=== PATIENT | female | born 1975 | race Caucasian/White ===

== ENCOUNTER 2017-01-31 13:38 | Emergency (ER) | payer OTHER ==
[~2017-01-31] VITALS: Ht 167.6 cm; Wt 155.5 kg
[~2017-01-31 13:38] MED LIST: ACCOLATE20 MG PO; ADVAIR 100/501 DISK IH; ADVAIR 250/501 DISK IH; ADVAIR HFA120 INHALA IH; ALEVE220 MG PO; AMOXICILLIN500 MG PO; AQUAPHOR OINTM105 GM TP; ASPIR-LOW81 MG PO; ATROVENT 00.5 MG/2.5 IH; AUGMENTIN875 MG PO; Advair 100/50 Diskus IH; BACTRIM,SEPT1 TABLET PO; CEFTIN500 MG PO; COLACE100 MG PO; COUMADIN; COUMADIN1 MG PO; COUMADIN2 MG PO; COUMADIN5 MG PO; Ceftin PO; Coumadin Protocol PO; DUONEB 2.5-0.5 M3 ML AEROSOL; FEOSOL325 MG PO; FERROUS SULFAT325 MG PO; FLEXERIL10 MG PO; FLUOXETINE HCL20 MG PO; FUROSEMIDE20 MG PO; FUROSEMIDE40 MG PO; GLUCOPHAGE500 MG PO; KEFLEX500 MG PO; LASIX40 MG PO; LISINOPRIL-HCT1 EACH PO; LOPRESSOR25 MG PO; LORTAB 5-325 M1 EACH PO; LOVENOX150 MG/1 M SC; Levaquin PO; Lovenox SC; METOPROLOL; METOPROLOL TART25 MG PO; MONTELUKAST SOD10 MG PO; NOHOMEMEDS; NORCO 5/3251 TABLET PO; PEN-VEE K,VEET500 MG PO; PREDNISONE20 MG PO; PREDNISONE5 MG PO; PRENATA CHEWAB1 EACH PO; PROAIR HFA8.5 GM IH; PROVENTIL,2.5 MG/3 M IH; PROZAC20 MG PO; Protonix PO; SIMVASTATIN40 MG PO; SINGULAIR10 MG; TYLENOL REGULA325 MG PO; TYLENOL WITH C1 EACH PO; ULTRAM50 MG PO; VENTOLIN HFA18 GM IH; WARFARIN SODIUM1 MG PO; WARFARIN SODIUM5 MG PO; ZESTORETIC 10-1 EAC1 PO; Zyvox PO; predniSONE PO
[2017-01-31 14:25] LABS: HEMATOCRIT 57.9 % (36.0-46.0); MCH 27.7 PG (29.0-34.0); MCHC 30.1 G/DL (30.0-36.0); MCV 92.2 FL (83-99); PLATELET COUNT 157 K/uL (156-360); RBC DIS.WIDTH-CV 16.6 % (11.8-14.6); RBC DIS.WIDTH-SD 52.1 % (39-53); RED BLOOD COUNT 6.28 M/uL (3.80-5.20); WHITE BLOOD COUNT 7.5 K/uL (4.1-10.2)
[2017-01-31 14:33] LABS: PROTHROMBIN TIME 11.3 SEC (10.2-12.9)
[2017-01-31 14:35] LABS: CHLORIDE 92 mEq/L (99-109); SODIUM 138 mEq/L (136-147)
[2017-01-31 14:36] LABS: PTT 31.3 SEC (25-37)
[2017-01-31 14:37] LABS: GLUCOSE 242 mg/dL (70-99)
[2017-01-31 14:38] LABS: ANION GAP 11 MEQ/L (2-14)
[2017-01-31 14:41] LABS: GFR ESTIMATE (CALCULATED) > 59 mL/min/
[2017-01-31 14:42] LABS: UREA NITROGEN (BUN) 6 mg/dL (9-23)
[2017-01-31] MEDS ORDERED: KEFLEX500 MG PO (15:24)
[2017-01-31] MEDS ORDERED: MONTELUKAST SOD10 MG PO (15:33)
[2017-01-31] MEDS ORDERED: METFORMIN HCL500 MG PO (15:33)
[2017-01-31] MEDS ORDERED: LISINOPRIL-HCT1 EACH PO (15:33)
[2017-01-31 15:36] VITALS: BP 00/0
== END 2017-01-31 15:37 | disposition home or self-care (01) ==
LOC: EME 13:38
PROVIDERS: Physician Assistant
DX: R60.0 Localized edema (principal); E11.9 Type 2 diabetes mellitus without complications; E78.5 Hyperlipidemia, unspecified; J44.9 Chronic obstructive pulmonary disease, unspecified; Z86.718 Personal history of other venous thrombosis and embolism; I10 Essential (primary) hypertension; Z87.891 Personal history of nicotine dependence; Z79.84 Long term (current) use of oral hypoglycemic drugs
CPT/HCPCS: 80048; 85027; 85610; 85730; 93971; 99281; 99282

== ENCOUNTER 2017-07-19 07:23 | Inpatient (IN) | payer OTHER ==
[~2017-07-19] VITALS: Ht 167.6 cm; Wt 156.4 kg
[~2017-07-19 07:23] MED LIST changes: +METFORMIN HCL500 MG PO
[2017-07-19 08:48] LABS: HEMATOCRIT 54.7 % (36.0-46.0); HEMOGLOBIN 16.3 G/DL (11.9-15.5); MCH 26.6 PG (29.0-34.0); MCHC 29.8 G/DL (30.0-36.0); MCV 89.2 FL (83-99); RED BLOOD COUNT 6.13 M/uL (3.80-5.20)
[2017-07-19 08:53] LABS: CHLORIDE 86 mEq/L (99-109); POTASSIUM 3.1 mEq/L (3.7-5.4); SODIUM 139 mEq/L (136-147)
[2017-07-19 08:55] LABS: GLUCOSE 205 mg/dL (70-99)
[2017-07-19 08:59] LABS: CREATININE 0.8 mg/dL (0.6-1.3); GFR ESTIMATE (CALCULATED) > 59 mL/min/
[2017-07-19 09:00] LABS: UREA NITROGEN (BUN) 6 mg/dL (9-23)
[2017-07-19 09:13] LABS: CARBON DIOXIDE (BICARBONATE) > 40.0 mEq/L (20-31)
[2017-07-19 10:10] LABS: BASE EXCESS 14.8 mEq/L (-3 to +3); BICARBONATE 44.2 mEq/L (22-26); CARBOXY HGB 3.7 % (0-5); METHEMOGLOBIN 0.9 % (0-1.5); PCO2 73 mm Hg (35-45); PO2 61 mm Hg (80-100); pH 7.39 (7.35-7.45)
[2017-07-19 10:12] LABS: COMMENTS - BLOOD GASES A+C+; DEVICE NC; O2 FLOW 2 L/MIN; SITE LA; TOTAL RESP RATE 20 resp/min
[2017-07-19 10:39] LABS: PLAT.SUFFICIENCY DECREASED; PLATELET COUNT 90 K/uL (156-360)
[2017-07-19 10:41] LABS: INTER. NORMALIZED RATIO 1.1
[2017-07-19 10:43] LABS: PTT 31.6 SEC (25-37)
[2017-07-19 13:18] LABS: INTER. NORMALIZED RATIO 1.2
[2017-07-19 13:22] LABS: PTT 97.6 SEC (25-37)
[2017-07-19 13:34] LABS: TROP-I INTERPRETATION NEGATIVE; TROPONIN-I 0.02 ng/mL (0.0-0.30)
[2017-07-19] MEDS ORDERED: LISINOPRIL-HCT1 EACH PO (13:56)
[2017-07-19] MEDS ORDERED: METFORMIN HCL1000 MG PO (13:57)
[2017-07-19] MEDS ORDERED: JANUVIA100 MG PO (13:57)
[2017-07-19] MEDS ORDERED: ADVAIR HFA120 INHALA IH (13:58)
[2017-07-19] MEDS ORDERED: MOTRIN800 MG PO (13:58)
[2017-07-19] MEDS ORDERED: PROAIR HFA8.5 GM IH (13:59)
[2017-07-19] MEDS ORDERED: SINGULAIR10 MG PO (13:59)
[2017-07-19 17:03] VITALS: BP 116/56
[2017-07-19 18:12] LABS: INTER. NORMALIZED RATIO 1.1
[2017-07-19 18:27] LABS: PTT 37.2 SEC (25-37)
[2017-07-19 19:41] VITALS: BP 123/79
[2017-07-19 19:59] LABS: TROP-I INTERPRETATION NEGATIVE; TROPONIN-I 0.01 ng/mL (0.0-0.30)
[2017-07-19 23:15] VITALS: BP 126/67
[2017-07-20 01:10] LABS: TROP-I INTERPRETATION NEGATIVE; TROPONIN-I 0.01 ng/mL (0.0-0.30)
[2017-07-20 03:32] VITALS: BP 124/68
[2017-07-20 08:04] VITALS: BP 150/76
[2017-07-20 08:05] LABS: PTT 47.1 SEC (25-37)
[2017-07-20 08:12] LABS: CHLORIDE 88 MEQ/L (99-109); CREATININE 0.8 MG/DL (0.6-1.3); GFR ESTIMATE (CALCULATED) > 59 mL/min/; GLUCOSE 204 mg/dL (70-99); POTASSIUM 3.5 MEQ/L (3.7-5.4); SODIUM 139 MEQ/L (136-147); UREA NITROGEN (BUN) 5 mg/dL (9-23)
[2017-07-20 08:13] LABS: CARBON DIOXIDE (BICARBONATE) > 40.0 MEQ/L (20-31)
[2017-07-20 08:16] LABS: HEMATOCRIT 56.2 % (36.0-46.0); HEMOGLOBIN 16.1 G/DL (11.9-15.5); MCH 25.9 PG (29.0-34.0); MCHC 28.6 G/DL (30.0-36.0); MCV 90.5 FL (83-99); PLATELET COUNT 98 K/uL (156-360); RBC DIS.WIDTH-CV 17.8 % (11.8-14.6); RBC DIS.WIDTH-SD 57.1 % (39-53); RED BLOOD COUNT 6.21 M/uL (3.80-5.20)
[2017-07-20 10:28] LABS: INTER. NORMALIZED RATIO 1.1
[2017-07-20 11:37] VITALS: BP 124/57
[2017-07-20 15:30] VITALS: BP 116/56
[2017-07-20 19:49] VITALS: BP 113/62
[2017-07-20 23:57] VITALS: BP 134/60
[2017-07-21 03:41] VITALS: BP 127/65
[2017-07-21 06:15] LABS: INTER. NORMALIZED RATIO 1.1
[2017-07-21 06:18] LABS: PTT 46.1 SEC (25-37)
[2017-07-21 06:40] LABS: ALBUMIN 3.4 G/DL (3.2-4.8); ALKALINE PHOSPHATASE 62 IU/L (3-129); ALT (GPT) 8 IU/L (3-49); AST (GOT) 13 IU/L (2-34); CHLORIDE 87 MEQ/L (99-109); CREATININE 0.7 MG/DL (0.6-1.3); GFR ESTIMATE (CALCULATED) > 59 mL/min/; GLUCOSE 177 mg/dL (70-99); POTASSIUM 3.2 MEQ/L (3.7-5.4); SODIUM 140 MEQ/L (136-147); TOTAL BILIRUBIN 1.4 MG/DL (0.0-1.0); TOTAL PROTEIN 6.2 G/DL (6.4-8.3); UREA NITROGEN (BUN) 5 mg/dL (9-23)
[2017-07-21 06:41] LABS: CARBON DIOXIDE (BICARBONATE) > 40.0 MEQ/L (20-31)
[2017-07-21 07:07] LABS: BASOPHIL (%) 0.5 % (0-1); EOSINOPHIL (%) 3.7 % (0-5); EOSINOPHIL COUNT 0.2 K/uL (0-0.3); HEMATOCRIT 52.3 % (36.0-46.0); HEMOGLOBIN 15.1 G/DL (11.9-15.5); IMMATURE GRANULOCYTE (%) 0.3 % (0.0-0.7); LYMPHOCYTE (%) 28.1 % (15-42); LYMPHOCYTE COUNT 1.7 K/uL (1.0-2.8); MCH 26.2 PG (29.0-34.0); MCHC 28.9 G/DL (30.0-36.0); MCV 90.8 FL (83-99); MONOCYTE COUNT 0.5 K/uL (0-0.8); NEUTROPHIL (%) 59.4 % (45-76); NEUTROPHIL COUNT 3.5 K/uL (1.8-6.4); RBC DIS.WIDTH-CV 17.6 % (11.8-14.6); RBC DIS.WIDTH-SD 56.8 % (39-53); RED BLOOD COUNT 5.76 M/uL (3.80-5.20); WHITE BLOOD COUNT 5.9 K/uL (4.1-10.2)
[2017-07-21 07:10] LABS: PLAT.SUFFICIENCY DECREASED; PLATELET COUNT 114 K/uL (156-360)
[2017-07-21 08:15] VITALS: BP 148/63
[2017-07-21 11:18] VITALS: BP 127/61
[2017-07-21 12:41] LABS: Estimated Average Glucose 240 mg/dL (70-123)
[2017-07-21 13:00] LABS: MAGNESIUM 1.7 mg/dl (1.3-2.7)
[2017-07-21 16:05] VITALS: BP 133/67
[2017-07-21 19:47] VITALS: BP 142/68
[2017-07-22] VITALS: BP 124/75
[2017-07-22 03:43] VITALS: BP 128/58
[2017-07-22 07:00] VITALS: BP 122/70
[2017-07-22 08:37] LABS: BASOPHIL (%) 0.4 % (0-1); EOSINOPHIL (%) 0.2 % (0-5); HEMATOCRIT 52.1 % (36.0-46.0); HEMOGLOBIN 15.1 G/DL (11.9-15.5); IMMATURE GRANULOCYTE (%) 0.2 % (0.0-0.7); LYMPHOCYTE (%) 22.8 % (15-42); LYMPHOCYTE COUNT 1.3 K/uL (1.0-2.8); MCH 26.7 PG (29.0-34.0); MCV 92.2 FL (83-99); MONOCYTE (%) 8.1 % (3-12); MONOCYTE COUNT 0.5 K/uL (0-0.8); NEUTROPHIL (%) 68.3 % (45-76); NEUTROPHIL COUNT 3.8 K/uL (1.8-6.4); RBC DIS.WIDTH-CV 16.7 % (11.8-14.6); RBC DIS.WIDTH-SD 56.4 % (39-53); RED BLOOD COUNT 5.65 M/uL (3.80-5.20); WHITE BLOOD COUNT 5.5 K/uL (4.1-10.2)
[2017-07-22 08:39] LABS: INTER. NORMALIZED RATIO 1.2
[2017-07-22 09:02] LABS: ALBUMIN 3.4 G/DL (3.2-4.8); ALKALINE PHOSPHATASE 57 IU/L (3-129); ALT (GPT) 11 IU/L (3-49); AST (GOT) 16 IU/L (2-34); CARBON DIOXIDE (BICARBONATE) > 40.0 MEQ/L (20-31); CHLORIDE 86 MEQ/L (99-109); CREATININE 0.7 MG/DL (0.6-1.3); GFR ESTIMATE (CALCULATED) > 59 mL/min/; GLUCOSE 299 mg/dL (70-99); POTASSIUM 4.2 MEQ/L (3.7-5.4); SODIUM 135 MEQ/L (136-147); TOTAL BILIRUBIN 0.9 MG/DL (0.0-1.0); TOTAL PROTEIN 6.2 G/DL (6.4-8.3); UREA NITROGEN (BUN) 8 mg/dL (9-23)
[2017-07-22 09:10] LABS: PLAT.SUFFICIENCY DECREASED; PLATELET COUNT 126 K/uL (156-360)
[2017-07-22 16:00] VITALS: BP 135/71
[2017-07-22 20:53] VITALS: BP 138/75
[2017-07-22 22:55] LABS: GLUCOSE 403 mg/dL (70-99)
[2017-07-23 00:04] VITALS: BP 145/76
[2017-07-23 04:21] VITALS: BP 132/67
[2017-07-23 04:27] LABS: INTER. NORMALIZED RATIO 1.4
[2017-07-23 04:29] LABS: BASOPHIL (%) 0.3 % (0-1); EOSINOPHIL (%) 0 % (0-5); HEMATOCRIT 51.4 % (36.0-46.0); HEMOGLOBIN 14.8 G/DL (11.9-15.5); IMMATURE GRANULOCYTE (%) 0.5 % (0.0-0.7); LYMPHOCYTE (%) 20.5 % (15-42); LYMPHOCYTE COUNT 1.2 K/uL (1.0-2.8); MCH 26.4 PG (29.0-34.0); MCHC 28.8 G/DL (30.0-36.0); MCV 91.6 FL (83-99); MONOCYTE (%) 7.2 % (3-12); MONOCYTE COUNT 0.4 K/uL (0-0.8); NEUTROPHIL (%) 71.5 % (45-76); NEUTROPHIL COUNT 4.2 K/uL (1.8-6.4); PLATELET COUNT 139 K/uL (156-360); RBC DIS.WIDTH-CV 16.6 % (11.8-14.6); RBC DIS.WIDTH-SD 56.5 % (39-53); RED BLOOD COUNT 5.61 M/uL (3.80-5.20); WHITE BLOOD COUNT 5.9 K/uL (4.1-10.2)
[2017-07-23 04:38] LABS: ALBUMIN 3.8 g/dL (3.2-4.8); CHLORIDE 87 mEq/L (99-109); SODIUM 135 mEq/L (136-147)
[2017-07-23 04:40] LABS: TOTAL PROTEIN 6.5 g/dL (6.4-8.3)
[2017-07-23 04:42] LABS: TOTAL BILIRUBIN 0.8 mg/dL (0.0-1.0)
[2017-07-23 04:44] LABS: ALKALINE PHOSPHATASE 66 IU/L (3-129); GFR ESTIMATE (CALCULATED) > 59 mL/min/
[2017-07-23 04:45] LABS: UREA NITROGEN (BUN) 14 mg/dL (9-23)
[2017-07-23 04:46] LABS: AST (GOT) 17 IU/L (2-34)
[2017-07-23 04:47] LABS: ALT (GPT) 14 IU/L (3-49)
[2017-07-23 04:52] LABS: GLUCOSE 416 mg/dL (70-99); POTASSIUM 5.1 mEq/L (3.7-5.4)
[2017-07-23 08:11] VITALS: BP 133/74
[2017-07-23 11:53] VITALS: BP 140/78
[2017-07-23 16:02] VITALS: BP 128/77
[2017-07-23 18:35] LABS: ACTIVATED PROTEIN C RESIST+ 4.6 ratio (>=2.1); DRVVT Mixing Study Interp Not Indicated (()); FACTOR VIII ACTIVITY+ 194 % (50-180); PROTEIN C FUNCTIONAL ACTIVITY+ 73 % (70-180); PTT-LA 35 sec (<=40); Protein S, Free 90 % normal (50-147); Thrombosis Consult Level Limited (()); dRVVT Screen 36 sec (<=45)
[2017-07-23 20:12] VITALS: BP 129/78
[2017-07-24 00:04] VITALS: BP 149/72
[2017-07-24 03:27] VITALS: BP 150/82
[2017-07-24 07:09] LABS: INTER. NORMALIZED RATIO 1.9
[2017-07-24 07:30] LABS: PTT 136.6 SEC (25-37)
[2017-07-24 07:47] LABS: ALBUMIN 4.1 G/DL (3.2-4.8); ALKALINE PHOSPHATASE 55 IU/L (3-129); ALT (GPT) 15 IU/L (3-49); AST (GOT) 16 IU/L (2-34); CHLORIDE 88 MEQ/L (99-109); CREATININE 0.6 MG/DL (0.6-1.3); GFR ESTIMATE (CALCULATED) > 59 mL/min/; GLUCOSE 266 mg/dL (70-99); POTASSIUM 5.1 MEQ/L (3.7-5.4); SODIUM 138 MEQ/L (136-147); TOTAL BILIRUBIN 0.7 MG/DL (0.0-1.0); TOTAL PROTEIN 6.9 G/DL (6.4-8.3); UREA NITROGEN (BUN) 15 mg/dL (9-23)
[2017-07-24 07:50] LABS: BASOPHIL (%) 0.2 % (0-1); EOSINOPHIL (%) 0 % (0-5); HEMOGLOBIN 15.9 G/DL (11.9-15.5); IMMATURE GRANULOCYTE (%) 0.7 % (0.0-0.7); LYMPHOCYTE (%) 22.9 % (15-42); MCH 26.5 PG (29.0-34.0); MCHC 28.9 G/DL (30.0-36.0); MCV 91.8 FL (83-99); MONOCYTE (%) 6.4 % (3-12); MONOCYTE COUNT 0.3 K/uL (0-0.8); NEUTROPHIL (%) 69.8 % (45-76); NEUTROPHIL COUNT 3.2 K/uL (1.8-6.4); RBC DIS.WIDTH-CV 16.9 % (11.8-14.6); RBC DIS.WIDTH-SD 55.5 % (39-53); RED BLOOD COUNT 5.99 M/uL (3.80-5.20); WHITE BLOOD COUNT 4.5 K/uL (4.1-10.2)
[2017-07-24 08:00] VITALS: BP 146/75
[2017-07-24 08:17] LABS: PLAT.SUFFICIENCY DECREASED; PLATELET COUNT 115 K/uL (156-360)
[2017-07-24 10:46] LABS: ANTITHROMBIN III ACTIVITY+ 78 % activi (80-120)
[2017-07-24 15:38] VITALS: BP 130/62
[2017-07-24 16:45] LABS: INTER. NORMALIZED RATIO 2.3
[2017-07-24 16:56] LABS: PTT 96.2 SEC (25-37)
[2017-07-24 23:20] VITALS: BP 115/60
[2017-07-25 07:38] VITALS: BP 125/64
[2017-07-25 08:58] LABS: INTER. NORMALIZED RATIO 2.8
[2017-07-25] MEDS ORDERED: PREDNISONE20 MG PO (11:38)
[2017-07-25] MEDS ORDERED: COUMADIN5 MG PO (11:38)
[2017-07-25] MEDS ORDERED: DUONEB 2.5-0.5 M3 ML AEROSOL (11:38)
[2017-07-25] MEDS ORDERED: SPIRIVA RESPIMAT4 GM IH (11:38)
[2017-07-25 11:41] VITALS: BP 125/72
== END 2017-07-25 15:04 | disposition home health service (06) | DRG 175 ==
LOC: EME 07:23 → EDOF 11:06 → 2EAST 11:06 → ENRESERV 11:13 → 2EAST 16:30
PROVIDERS: Family Medicine; Hospitalist; Internal Medicine; Physician Assistant
DX: I26.99 Other pulmonary embolism without acute cor pulmonale (principal); J96.01 Acute respiratory failure with hypoxia; J44.1 Chronic obstructive pulmonary disease with (acute) exacerbation; Z68.44 Body mass index [BMI] 60.0-69.9, adult; I80.03 Phlebitis and thrombophlebitis of superficial vessels of lower extremities, bilateral; E11.65 Type 2 diabetes mellitus with hyperglycemia; K80.20 Calculus of gallbladder without cholecystitis without obstruction; E66.01 Morbid (severe) obesity due to excess calories; J96.02 Acute respiratory failure with hypercapnia; I10 Essential (primary) hypertension; E78.5 Hyperlipidemia, unspecified; G47.33 Obstructive sleep apnea (adult) (pediatric); K21.9 Gastro-esophageal reflux disease without esophagitis; E87.6 Hypokalemia; D69.6 Thrombocytopenia, unspecified; R79.1 Abnormal coagulation profile; F41.9 Anxiety disorder, unspecified; I83.90 Asymptomatic varicose veins of unspecified lower extremity; Z87.891 Personal history of nicotine dependence; Z86.72 Personal history of thrombophlebitis; Z99.81 Dependence on supplemental oxygen; Z86.718 Personal history of other venous thrombosis and embolism; Z86.711 Personal history of pulmonary embolism; Z82.49 Family history of ischemic heart disease and other diseases of the circulatory system
CPT/HCPCS: 36600; 71045; 71275; 80048; 80053; 81240 90; 82803; 82948; 83036; 83090 90; 83735; 83880; 84484; 84999; 85025; 85027; 85240 90; 85300 90; 85303 90; 85305 90; 85306 90; 85307 90; 85610; 85613 90; 85730; 85730 90; 86146 90; 86147 90; 87502; 93005; 93306; 93970; 94640; 94640 76; 94660; 94799; 99281; 99285; J1815; J7030; J7512

== ENCOUNTER 2018-02-27 12:16 | Inpatient (IN) | payer OTHER ==
[~2018-02-27] VITALS: Ht 167.6 cm; Wt 175.0 kg
[~2018-02-27 12:16] MED LIST changes: +JANUVIA100 MG PO; +METFORMIN HCL1000 MG PO; +MOTRIN800 MG PO; +SINGULAIR10 MG PO; +SPIRIVA RESPIMAT4 GM IH
[2018-02-27 13:04] LABS: HEMATOCRIT 57.5 % (36.0-46.0); HEMOGLOBIN 18.6 G/DL (11.9-15.5); MCH 29.2 PG (29.0-34.0); MCHC 32.3 G/DL (30.0-36.0); MCV 90.1 FL (83-99); PLATELET COUNT 153 K/uL (156-360); RBC DIS.WIDTH-SD 55.6 % (39-53); RED BLOOD COUNT 6.38 M/uL (3.80-5.20); WHITE BLOOD COUNT 15.3 K/uL (4.1-10.2)
[2018-02-27 13:17] LABS: ALBUMIN 4.3 g/dL (3.2-4.8); CHLORIDE 92 mEq/L (99-109); POTASSIUM 4.5 mEq/L (3.7-5.4); SODIUM 135 mEq/L (136-147)
[2018-02-27 13:20] LABS: GLUCOSE 262 mg/dL (70-99); TOTAL PROTEIN 7.8 g/dL (6.4-8.3)
[2018-02-27 13:22] LABS: TOTAL BILIRUBIN 1.1 mg/dL (0.0-1.0)
[2018-02-27 13:23] LABS: ALKALINE PHOSPHATASE 107 IU/L (3-129); CREATININE 0.8 mg/dL (0.6-1.3); GFR ESTIMATE (CALCULATED) > 59 mL/min/
[2018-02-27 13:24] LABS: UREA NITROGEN (BUN) 9 mg/dL (9-23)
[2018-02-27 13:25] LABS: AST (GOT) 99 IU/L (2-34)
[2018-02-27 13:26] LABS: ALT (GPT) 53 IU/L (3-49)
[2018-02-27 13:27] LABS: LIPASE 20 U/L (1.0-51.0)
[2018-02-27 13:32] LABS: QUANTITATIVE HCG < 4.0 MIU/ML
[2018-02-27 15:55] LABS: PTT 30.3 SEC (25-37)
[2018-02-27] MEDS ORDERED: SPIRIVA RESPIMAT4 GM IH (16:20)
[2018-02-27] MEDS ORDERED: ELIQUIS5 MG PO (16:21)
[2018-02-27] MEDS ORDERED: JARDIANCE10 MG PO (16:21)
[2018-02-27] MEDS ORDERED: ZOLOFT50 MG PO (16:22)
[2018-02-27 21:31] VITALS: BP 128/62
[2018-02-28] VITALS (22 sets, daily range): BP systolic 88–131; BP diastolic 44–87
[2018-02-28 02:54] LABS: COMMENTS - BLOOD GASES C+; DEVICE NRB; FI02 100 %; SITE L RAD
[2018-02-28 02:56] LABS: CARBOXY HGB 3 % (0-5); METHEMOGLOBIN 1.1 % (0-1.5); O2 SATURATION (CALCULATED) 99.4 % (95-99); PCO2 > 122 mm Hg (35-45); PO2 151 mm Hg (80-100)
[2018-02-28 03:09] LABS: HEMATOCRIT 55.5 % (36.0-46.0); HEMOGLOBIN 17.3 G/DL (11.9-15.5); MCH 29.5 PG (29.0-34.0); MCHC 31.2 G/DL (30.0-36.0); MCV 94.5 FL (83-99); NRBC (%) 0.1 /100 WBC (0-0); PLATELET COUNT 221 K/uL (156-360); RBC DIS.WIDTH-CV 17.2 % (11.8-14.6); RBC DIS.WIDTH-SD 58.5 % (39-53); RED BLOOD COUNT 5.87 M/uL (3.80-5.20); WHITE BLOOD COUNT 25.3 K/uL (4.1-10.2)
[2018-02-28 03:11] LABS: ALBUMIN 4.2 g/dL (3.2-4.8); CHLORIDE 95 mEq/L (99-109); POTASSIUM 5.2 mEq/L (3.7-5.4); SODIUM 139 mEq/L (136-147)
[2018-02-28 03:13] LABS: GLUCOSE 336 mg/dL (70-99)
[2018-02-28 03:14] LABS: TOTAL PROTEIN 6.9 g/dL (6.4-8.3)
[2018-02-28 03:15] LABS: TOTAL BILIRUBIN 0.9 mg/dL (0.0-1.0)
[2018-02-28 03:17] LABS: ALKALINE PHOSPHATASE 112 IU/L (3-129); CREATININE 0.8 mg/dL (0.6-1.3); GFR ESTIMATE (CALCULATED) > 59 mL/min/
[2018-02-28 03:18] LABS: UREA NITROGEN (BUN) 10 mg/dL (9-23)
[2018-02-28 03:19] LABS: AST (GOT) 88 IU/L (2-34)
[2018-02-28 03:20] LABS: ALT (GPT) 65 IU/L (3-49)
[2018-02-28 03:37] LABS: SITE RR
[2018-02-28 03:38] LABS: BASE EXCESS 0.3 mEq/L (-3 to +3); BICARBONATE 32.1 mEq/L (22-26); CARBOXY HGB 2.8 % (0-5); METHEMOGLOBIN 1.3 % (0-1.5); O2 SATURATION (CALCULATED) 95.8 % (95-99); PCO2 84 mm Hg (35-45); PO2 75 mm Hg (80-100); pH 7.19 (7.35-7.45)
[2018-02-28 05:19] LABS: COMMENTS - BLOOD GASES C+; DEVICE BIPAP; SITE LR
[2018-02-28 05:20] LABS: CARBOXY HGB 2.7 % (0-5); METHEMOGLOBIN 1.1 % (0-1.5); O2 SATURATION (CALCULATED) 96.9 % (95-99); PCO2 108 mm Hg (35-45); PO2 89 mm Hg (80-100); pH 7.15 (7.35-7.45)
[2018-02-28 05:21] LABS: BASE EXCESS 3.6 mEq/L (-3 to +3); BICARBONATE 37.6 mEq/L (22-26)
[2018-02-28 06:25] LABS: HEMATOCRIT 53.1 % (36.0-46.0); HEMATOLOGY COMMENT 1 SN; HEMOGLOBIN 16.6 G/DL (11.9-15.5); MCH 29.1 PG (29.0-34.0); MCHC 31.3 G/DL (30.0-36.0); PLAT.SUFFICIENCY ADEQUATE; RBC DIS.WIDTH-CV 17.2 % (11.8-14.6); RBC DIS.WIDTH-SD 57.5 % (39-53); RED BLOOD COUNT 5.71 M/uL (3.80-5.20)
[2018-02-28 06:26] LABS: PLATELET COUNT UNABLE TO REPORT K/uL (156-360)
[2018-02-28 07:51] LABS: COMMENTS - BLOOD GASES A+C+; SITE RR
[2018-02-28 07:52] LABS: BICARBONATE 33.6 mEq/L (22-26); CARBOXY HGB 2.3 % (0-5); DEVICE VENT; FI02 60 %; MECHANICAL RATE 22 resp/min; METHEMOGLOBIN 1.2 % (0-1.5); MODE AC; PCO2 53 mm Hg (35-45); PEEP 5 CM/H20; PO2 102 mm Hg (80-100); TIDAL VOLUME 420 ML; TOTAL RESP RATE 22 resp/min; pH 7.41 (7.35-7.45)
[2018-02-28 09:32] LABS: CREATINE KINASE 722 IU/L (1-294); TRIGLYCERIDES 171 MG/DL (Normal: <150)
[2018-03-01] VITALS (12 sets, daily range): BP systolic 98–112; BP diastolic 45–64
[2018-03-01 05:40] LABS: BASOPHIL (%) 0.2 % (0-1); EOSINOPHIL (%) 0.7 % (0-5); EOSINOPHIL COUNT 0.1 K/uL (0-0.3); HEMATOCRIT 44.5 % (36.0-46.0); IMMATURE GRANULOCYTE (%) 0.5 % (0.0-0.7); LYMPHOCYTE (%) 24.4 % (15-42); MCH 28.6 PG (29.0-34.0); MCHC 30.6 G/DL (30.0-36.0); MCV 93.5 FL (83-99); MONOCYTE (%) 8.3 % (3-12); MONOCYTE COUNT 0.7 K/uL (0-0.8); NEUTROPHIL (%) 65.9 % (45-76); NEUTROPHIL COUNT 5.4 K/uL (1.8-6.4); RBC DIS.WIDTH-CV 17.1 % (11.8-14.6); RBC DIS.WIDTH-SD 58.9 % (39-53); RED BLOOD COUNT 4.76 M/uL (3.80-5.20); WHITE BLOOD COUNT 8.2 K/uL (4.1-10.2)
[2018-03-01 05:43] LABS: HEMOGLOBIN 13.6 G/DL (11.9-15.5); PLATELET COUNT 101 K/uL (156-360)
[2018-03-01 06:01] LABS: CHLORIDE 98 MEQ/L (99-109); CREATININE 0.6 MG/DL (0.6-1.3); GFR ESTIMATE (CALCULATED) > 59 mL/min/; GLUCOSE 177 mg/dL (70-99); SODIUM 140 MEQ/L (136-147); UREA NITROGEN (BUN) 17 mg/dL (9-23)
[2018-03-02 00:12] VITALS: BP 117/56
[2018-03-02 03:50] VITALS: BP 116/60
[2018-03-02 07:41] VITALS: BP 105/58
[2018-03-02 08:33] LABS: BASOPHIL (%) 0.5 % (0-1); EOSINOPHIL (%) 1.2 % (0-5); EOSINOPHIL COUNT 0.1 K/uL (0-0.3); HEMATOCRIT 43.8 % (36.0-46.0); HEMOGLOBIN 13.7 G/DL (11.9-15.5); IMMATURE GRANULOCYTE (%) 0.6 % (0.0-0.7); LYMPHOCYTE (%) 15.1 % (15-42); LYMPHOCYTE COUNT 1.2 K/uL (1.0-2.8); MCH 29.4 PG (29.0-34.0); MCHC 31.3 G/DL (30.0-36.0); MONOCYTE (%) 7.5 % (3-12); MONOCYTE COUNT 0.6 K/uL (0-0.8); NEUTROPHIL (%) 75.1 % (45-76); NEUTROPHIL COUNT 5.8 K/uL (1.8-6.4); PLATELET COUNT 104 K/uL (156-360); RBC DIS.WIDTH-CV 16.6 % (11.8-14.6); RBC DIS.WIDTH-SD 57.7 % (39-53); RED BLOOD COUNT 4.66 M/uL (3.80-5.20); WHITE BLOOD COUNT 7.7 K/uL (4.1-10.2)
[2018-03-02 09:15] LABS: ALBUMIN 3.1 G/DL (3.2-4.8); ALKALINE PHOSPHATASE 65 IU/L (3-129); ALT (GPT) 21 IU/L (3-49); AST (GOT) 16 IU/L (2-34); CHLORIDE 97 MEQ/L (99-109); CREATININE 0.6 MG/DL (0.6-1.3); GFR ESTIMATE (CALCULATED) > 59 mL/min/; GLUCOSE 186 mg/dL (70-99); POTASSIUM 4.5 MEQ/L (3.7-5.4); SODIUM 139 MEQ/L (136-147); TOTAL BILIRUBIN 1.1 MG/DL (0.0-1.0); TOTAL PROTEIN 5.3 G/DL (6.4-8.3); UREA NITROGEN (BUN) 16 mg/dL (9-23)
[2018-03-02 09:54] LABS: HEMOGLOBIN A1c (GLYCOHEMOGLOB) 8.5 % (Below 5.7)
[2018-03-02 11:10] VITALS: BP 114/53
[2018-03-02 15:58] VITALS: BP 103/57
[2018-03-03 00:05] VITALS: BP 100/50
[2018-03-03 04:18] VITALS: BP 98/54
[2018-03-03 07:30] VITALS: BP 112/61
[2018-03-03 11:01] VITALS: BP 120/60
[2018-03-03 11:17] LABS: APPEARANCE TURBID ((CLEAR)); BILIRUBIN NEGATIVE; BLOOD LARGE; COLOR AMBER ((YELLOW)); GLUCOSE (STRIP) >=500; KETONES 5; LEUKOCYTES SMALL; NITRITE NEGATIVE; PROTEIN (STRIP) 100; SPECIFIC GRAVITY 1.036 (1.000-1.030)
[2018-03-03 11:35] LABS: RED BLOOD CELLS TNTC /HPF (0-5)
[2018-03-03 11:36] LABS: WHITE BLOOD CELLS 15-20 /HPF (0-5)
[2018-03-03 11:37] LABS: EPITHELIAL CELLS 1+ /HPF
[2018-03-03 11:38] LABS: AMORPHOUS URATES CRYSTALS 3+; BACTERIA 1+ /HPF; MUCUS NONE SEEN /LPF; UCUL ADDED? YES
[2018-03-03 16:01] VITALS: BP 131/70
[2018-03-03 19:49] VITALS: BP 126/62
[2018-03-04 00:15] VITALS: BP 107/59
[2018-03-04 04:08] VITALS: BP 108/56
[2018-03-04 07:45] VITALS: BP 129/63
[2018-03-04 09:18] LABS: HEMATOCRIT 44.2 % (36.0-46.0); HEMOGLOBIN 13.2 G/DL (11.9-15.5); MCH 28.7 PG (29.0-34.0); MCHC 29.9 G/DL (30.0-36.0); MCV 96.1 FL (83-99); PLATELET COUNT 107 K/uL (156-360); RBC DIS.WIDTH-CV 17.2 % (11.8-14.6); RBC DIS.WIDTH-SD 60.3 % (39-53); WHITE BLOOD COUNT 7.3 K/uL (4.1-10.2)
[2018-03-04 09:50] LABS: ALBUMIN 3.1 G/DL (3.2-4.8); ALKALINE PHOSPHATASE 62 IU/L (3-129); ALT (GPT) 13 IU/L (3-49); AST (GOT) 13 IU/L (2-34); CHLORIDE 100 MEQ/L (99-109); CREATININE 0.5 MG/DL (0.6-1.3); GFR ESTIMATE (CALCULATED) > 59 mL/min/; GLUCOSE 173 mg/dL (70-99); MAGNESIUM 1.9 mg/dl (1.3-2.7); PHOSPHORUS 2.6 mg/dL (2.5-4.9); POTASSIUM 5.4 MEQ/L (3.7-5.4); SODIUM 139 MEQ/L (136-147); TOTAL PROTEIN 5.7 G/DL (6.4-8.3); UREA NITROGEN (BUN) 12 mg/dL (9-23)
[2018-03-04 09:54] LABS: TOTAL BILIRUBIN 0.8 MG/DL (0.0-1.0)
[2018-03-04 12:00] VITALS: BP 128/68
[2018-03-04 16:08] VITALS: BP 111/55
[2018-03-04 19:39] VITALS: BP 121/59
[2018-03-05 00:22] VITALS: BP 120/54
[2018-03-05 04:27] VITALS: BP 124/40
[2018-03-05 08:38] VITALS: BP 122/60
[2018-03-05 10:53] VITALS: BP 121/56
[2018-03-05 16:07] VITALS: BP 123/60
[2018-03-05 19:43] VITALS: BP 133/69
[2018-03-06 00:05] VITALS: BP 128/58
[2018-03-06 04:24] VITALS: BP 132/59
[2018-03-06 06:46] LABS: CHLORIDE 96 MEQ/L (99-109); CREATININE 0.5 MG/DL (0.6-1.3); GFR ESTIMATE (CALCULATED) > 59 mL/min/; GLUCOSE 129 mg/dL (70-99); POTASSIUM 4.4 MEQ/L (3.7-5.4); SODIUM 140 MEQ/L (136-147); UREA NITROGEN (BUN) 7 mg/dL (9-23)
[2018-03-06 08:33] VITALS: BP 119/62
[2018-03-06 11:02] VITALS: BP 120/57
[2018-03-06 16:07] VITALS: BP 121/58
[2018-03-06 19:52] VITALS: BP 113/54
[2018-03-07 03:55] VITALS: BP 137/65
[2018-03-07 07:12] VITALS: BP 121/61
[2018-03-07 11:20] VITALS: BP 136/71
[2018-03-07 16:14] VITALS: BP 137/63
[2018-03-07 19:43] VITALS: BP 114/57
[2018-03-07 23:32] VITALS: BP 134/92
[2018-03-08 09:11] VITALS: BP 128/59
[2018-03-08] MEDS ORDERED: Salonpas 4% Patch TD (13:10)
[2018-03-08] MEDS ORDERED: ROXICODONE5 MG PO (13:11)
[2018-03-08 15:21] VITALS: BP 128/78
== END 2018-03-08 17:55 | DRG 208 ==
LOC: TRA 12:16 → EME 12:16 → EDOF 18:13 → ENRESERV 18:17 → 3EAST 20:50 → 4WEST 02-28 03:05 → 3EAST 02-28 04:06 → 4WEST 02-28 04:06 → ENRESERV 03-01 08:53 → 3EAST 03-01 09:45
PROVIDERS: Emergency Medicine; Internal Medicine; Physician Assistant; Physician Assistant Medical; Student in an Organized Health Care Education/Training Program; Surgery
DX: S22.41XA Multiple fractures of ribs, right side, initial encounter for closed fracture (principal); J96.21 Acute and chronic respiratory failure with hypoxia; S32.591A Other specified fracture of right pubis, initial encounter for closed fracture; S32.10XA Unspecified fracture of sacrum, initial encounter for closed fracture; S51.019A Laceration without foreign body of unspecified elbow, initial encounter; I10 Essential (primary) hypertension; Z68.44 Body mass index [BMI] 60.0-69.9, adult; E78.5 Hyperlipidemia, unspecified; J44.9 Chronic obstructive pulmonary disease, unspecified; S30.0XXA Contusion of lower back and pelvis, initial encounter; G47.33 Obstructive sleep apnea (adult) (pediatric); K21.9 Gastro-esophageal reflux disease without esophagitis; F32.9 Major depressive disorder, single episode, unspecified; F41.9 Anxiety disorder, unspecified; E11.9 Type 2 diabetes mellitus without complications; E66.01 Morbid (severe) obesity due to excess calories; K80.20 Calculus of gallbladder without cholecystitis without obstruction; Z87.891 Personal history of nicotine dependence; Z79.01 Long term (current) use of anticoagulants; Z79.84 Long term (current) use of oral hypoglycemic drugs; V43.62XA Car passenger injured in collision with other type car in traffic accident, initial encounter; Y92.410 Unspecified street and highway as the place of occurrence of the external cause; Z86.718 Personal history of other venous thrombosis and embolism; Z79.899 Other long term (current) drug therapy; Z99.81 Dependence on supplemental oxygen
CPT/HCPCS: 36600; 70450; 71045; 71260; 72125; 72129; 72132; 74177; 80048; 80053; 81003; 82550; 82948; 83036; 83605; 83690; 83735; 84100; 84478; 84702; 85025; 85027; 85610; 85730; 87070; 87086; 87205; 87641; 94002; 94003; 94640; 94660; 94760; 94799; 97530 GO; 97530 GP; 99281; 99285; G0378; J0330; J1644; J1815; J1885; J2270; J2310; J2405; J2704; J3010; J7030; J7120